=== PATIENT | female | born 1960 | race Hispanic/Latino ===

== ENCOUNTER 2018-02-15 13:57 | Inpatient (IN) | payer MEDICARE, OTHER ==
[2018-02-15 14:03] VITALS: BMI 37.8
--- NOTE | 2018-02-15 16:26 | C.PDOC ---
History Of Present Illness 57 y/o female brought in via ambulance, transferred to inpatient psychiatric floor. Patient was recently admitted inpatient at [facility] and decompensated. Prior to arrival, patient was accepted to Dr. Ellis's service. No physical complaints offered at this time. Time Seen by Provider: 02/15/18 14:02 Chief Complaint (Nursing): Medical Clearance History Per: Patient History/Exam Limitations: no limitations Past Medical History Reviewed: Historical Data, Nursing Documentation, Vital Signs Vital Signs: Last Vital Signs Temp 98.9 F 02/15/18 15:55 Pulse 96 H 02/15/18 15:55 Resp 18 02/15/18 15:55 BP 130/87 02/15/18 15:55 Pulse Ox 98 02/15/18 14:02 - Medical History PMH: Anemia, Anxiety, Asthma, Cardia Arrhythmia, COPD, Depression, Fractures (mild t 11 comp fx 2013), Gastritis, Gall Bladder Disease (CHOLECYSTITIS ,CHOLECYSTECTOMY,MILD GASTRITIS), GERD, Schizophrenia, Seizures (epilepsy) Denies: Bipolar Disorder, Diabetes, Hepatitis, HIV, Paranoia, Post Traumatic Stress Disorder, Chronic Kidney Disease, Sexually Transmitted Disease Comment Only: Arthritis (pt denies), HTN (pt denies), Hypercholesterolemia (pt denies) Surgical History: Appendectomy (removed with hyst), Cholecystectomy Denies: Pacemaker - [facility] Procedures APPLICATION OF SPLINT (08/05/06) BATHING/SHOWERING TECHNIQUES TREATMENT (01/18/18) CLOSED ENDOSCOPIC BIOPSY OF LARGE INTESTINE (07/04/14) COLONOSCOPY (12/06/13) ENDO EXCISION/DEST OF LESION OR TISSUE OF STOMACH (07/11/05) ENDOSC POLYPECTOMY OF LG INTEST (07/07/06) ESOPHAGOGASTRODUODENOSCOPY [EGD] W/CLOSED BIOPSY (07/04/14) GAIT TRAINING/AMBULAT TREATMENT USING ASSIST EQUIPMENT (01/18/18) GROOMING/PERSONAL HYGIENE TREATMENT (01/18/18) HOME MANAGEMENT TREATMENT (01/18/18) INJECT/INFUSE ELECTROLYT (08/28/14) INJECT/INFUSE NEC (08/28/14) MEDICATION MANAGEMENT (02/07/18) NEBULIZER THERAPY (10/17/14) PSYCHIA INTERV/EVAL NEC (11/06/13) THERAPEUTIC EXERCISE TREATMENT OF MUSCULOSK WHOLE (09/20/18) Family History: States: No Known Family Hx - Social History Hx Tobacco Use: No Hx Alcohol Use: No Hx Substance Use: No - Immunization History Hx Tetanus Toxoid Vaccination: No Hx Influenza Vaccination: No Hx Pneumococcal Vaccination: No Review Of Systems Constitutional: Negative for: Fever Cardiovascular: Negative for: Chest Pain Respiratory: Negative for: Shortness of Breath Gastrointestinal: Negative for: Vomiting Neurological: Negative for: Headache, Dizziness Physical Exam - Physical Exam Appears: Non-toxic, No Acute Distress, Other (Obese female) Skin: Warm, Dry Head: Atraumatic, Normacephalic Eye(s): bilateral: Normal Inspection Oral Mucosa: Moist Neck: Normal ROM Chest: Symmetrical Cardiovascular: Rhythm Regular, No Murmur Respiratory: Normal Breath Sounds, No Accessory Muscle Use Extremity: Bilateral: Atraumatic, Normal Color And Temperature Pulses: Left Radial: Normal, Right Radial: Normal Neurological/Psych: Oriented x3, Normal Speech, Other (Flat affect, bizarre) ED Course And Treatment O2 Sat by Pulse Oximetry: 98 (RA) Pulse Ox Interpretation: Normal Medical Decision Making Medical Decision Making: Patient already cleared for transfer to [facility] service. Admit orders placed. Disposition Discussed With : Mariela Ellis Doctor Will See Patient In The: Hospital Counseled Patient/Family Regarding: Diagnosis - Disposition Disposition: HOSPITALIZED Disposition Time: 14:03 Condition: STABLE - POA Present On Arrival: None - Clinical Impression Clinical Impression: Schizophrenia - Scribe Statement The provider has reviewed the documentation as recorded by the Scribe (Elaine Sim) Provider Attestation: All medical record entries made by the Scribe were at my direction and personally dictated by me. I have reviewed the chart and agree that the record accurately reflects my personal performance of the history, physical exam, medical decision making, and the department course for this patient. I have also personally directed, reviewed, and agree with the discharge instructions and disposition.
--- NOTE | 2018-02-15 17:48 | PCM.BM ---
<Rebekah Ovalles - Last Filed: 02/15/18 17:46> Treatment Plan Problems - Problems identified on initial assessmt depression Date Initiated: 02/15/18 Time Initiated: 17:47 Assessment reference: NA Status: Active Treatment assets and liabiliti Patient Assests: cooperative, educated, motivated, resourceful, ADL independent, negotiates basic needs, cognitively intact, good interpersonal skills, strong sofia Patient Liabilities: live alone, poor support system, medical problems <Diana Resendiz - Last Filed: 02/16/18 09:39> - Diagnosis (1) Schizoaffective disorder Status: Acute Interventions: 02/16/18 09:40 * Assess/adjust medications daily and /or as needed * See patient on an individual basis 7x/week to assess status of hallucinations * Discuss risks, benefits, side effects and alternatives of medications * <Ayaka Mars - Last Filed: 02/16/18 10:20> Family Contact Family involvement: Famliy/SO not involved - Goals for Treatment Patient goals for treatment: "I want the right medication." Discharge/Continuing Care - Education Needs Education Needs: Patient Medication, Patient Coping Skills - Discharge Discharge Criteria: Tolerates medication w/o severe side effects, Reduction of target symptoms Discharge to:: Home - Treatment Team Participation Discussed with Family/SO: No Was Patient/Family/SO present at Treatment Team Meeting: Yes
--- NOTE | 2018-02-16 09:37 | PCM.PSYCH ---
Initial Psychiatric Evaluation - Initial Psychiatric Evaluation Type of Admission: Voluntary Legal Status: Capacity Chief Complaint (in patient's own words): I was hearing voices. History of Present Illness and Precipitating Events: Patient is a 57 years old, single, unemployed CF, with a long history of schizophrenia, was transferred from [facility] because of disorganized behavior. Patient reports a long history of schizophrenia. She has been admitted multiple times in psychiatric hospitals. She reports history of follow-up with the outpatient clinic. As per the report, patient stopped taking her medications, became disorganized and was admitted to the hospital. Patient became increasingly paranoid and delusional that male staff is abusing her. Patient was transferred to [facility] further stabilization.. She remained disorganized and delusional but without the interview. She reports hearing voices, telling her to kill herself. She also reports of Visual hallucinations seeing shadows. She also reports paranoia that people are following her. she also reports paranoia that sometimes TV is talking to her. she remained paranoid throughout the interview. She reports at times depressed mood, feelings of hopelessness and helplessness, poor sleep and poor appetite. She denies any drinking or any drugs. PMH; DM, history of gout, history of seizures Current Medications: Active Medications Generic Name Dose Route Start Last Admin Trade Name Freq PRN Reason Stop Dose Admin Allopurinol 300 mg 02/16/18 10:00 Zyloprim PO DAILY ASHUTOSH Aspirin 81 mg 02/16/18 10:00 Aspirin Chewable PO DAILY ASHUTOSH Clozapine 25 mg 02/16/18 10:00 Clozaril PO BID ASHUTOSH Fluoxetine HCl 10 mg 02/16/18 10:00 Prozac PO DAILY ASHUTOSH Fluoxetine HCl 20 mg 02/16/18 10:00 Prozac PO DAILY ASHUTOSH Lamotrigine 100 mg 02/15/18 19:00 02/15/18 19:03 Lamictal PO 100 mg BID ASHUTOSH Administration Levetiracetam 1,000 mg 02/15/18 18:00 02/15/18 17:33 Keppra PO 1,000 mg BID ASHUTOSH Administration Lorazepam 1 mg 02/15/18 17:15 02/15/18 22:01 Ativan PO 1 mg Q6 PRN Administration Anxiety Past Psychiatric History - Past Psychiatric History Previous Treatment History: Inpatient Pertinent Medical Hx (Current Medical&Sleep Prob, Allergies): Allergies Allergy/AdvReac Type Severity Reaction Status Date / Time Penicillins Allergy Severe ITCHING Verified 02/15/18 14:03 Aspirin [Ecotrin] 81 mg PO DAILY #30 tabec 01/24/18 FLUoxetine [Prozac] 20 mg PO DAILY #30 cap 01/24/18 LORazepam [Ativan] 1 mg PO HS tab 01/24/18 LORazepam [Ativan] 2 mg PO Q6H PRN tab 01/24/18 Loratadine [Claritin] 10 mg PO DAILY #20 tab 01/24/18 levETIRAcetam [Keppra] 1,000 mg PO HS #30 tab 01/24/18 levETIRAcetam [Keppra] 750 mg PO DAILY #30 tab 01/24/18 Allopurinol [Zyloprim] 300 mg PO DAILY 02/07/18 Mirtazapine [Remeron] 15 mg PO HS 02/07/18 Omeprazole 40 mg PO DAILY 02/07/18 lamoTRIgine [LaMICtal] 100 mg PO BID 02/07/18 Review of Systems - Review of Systems All systems: reviewed and no additional remarkable complaints except - Psychiatric Psychiatric: Anxiety, Auditory Hallucinations, Irritability, Paranoia Mental Status Examination - Personal Presentation Personal Presentation: Looks stated age - Affect Affect: Constricted, Depressed - Motor Activity Motor Activity: Psychomotor Retardation - Reliability in Providing Information Reliability in Providing Information: Poor, due to alteration in thoughts, Poor, due to altered mood - Speech Speech: Disorganized - Mood Mood: Depressed, Anxious - Formal Thought Process Formal Thought Process: Hallucinations, Delusions, Paranoia, Loosening of associations - Hallucinations/Delusions Hallucinations: Visual, Auditory Delusions: Persecution - Obsessions/Compulsions Obsessions: No Compulsions: No - Cognitive Functions Orientation: Person, Place, Situation, Time Sensorium: Alert Attention/Concentration: Attentive Abstract Thinking: [place] Estimate of Intelligence: Below average Judgement: Imparied, as evidence by: Poor judgement, Imparied, as evidence by: Lack of insight into illness - Risk Risk: Diminished functioning - Limitations Limitations: Living alone DSM 5 DX - DSM 5 DSM 5 Diagnosis: schizophrenia paranoid type continuous Rule out schizoaffective disorder bipolar type - Recommended/Plan of Treatment Treatment Recommendations and Plan of Treatment: Schizophrenia paranoid type continuous Rule out Schizoaffective disorder bipolar type DM, history of gout, history of seizures CBT Psychoeducation Supportive therapy continue clozapine Continue Keppra Start Remeron Start allopurinol Continue Lamictal Continue aspirin Continue Prozac - Smoking Cessation Smoking Cessation Initiated: No
[2018-02-16] MEDS: Pantoprazole 40 mg EC Tab PO SCH (10:17)
[2018-02-16 13:59] LABS: BASO % 0.6 % (0.0-2.0); EOS # 0.1 K/uL (0.0-0.7); EOS % 1.5 % (0.0-4.0); LYMPH # 1.1 K/uL (1.0-4.3); LYMPH % 19.7 % (20.0-40.0); MEAN CORPUSCULAR HEMOGLOBIN 29.3 pg (27.0-31.0); MEAN CORPUSCULAR HGB CONC 33.8 g/dL (33.0-37.0); MEAN PLATELET VOLUME 7.1 fL (7.2-11.7); MONO # 0.3 K/uL (0.0-0.8); MONO % 4.6 % (0.0-10.0); NEUT # 4.2 K/uL (1.8-7.0); NEUT % 73.6 % (50.0-75.0); RBC 4.06 Mil/uL (3.80-5.20); RED CELL DISTRIBUTION WIDTH 14.3 % (11.5-14.5); WHITE BLOOD COUNT 5.8 K/uL (4.8-10.8)
[2018-02-16 14:01] LABS: HEMOGLOBIN 11.9 g/dL (11.0-16.0); MEAN CELL VOLUME 86.6 fL (81.0-99.0)
[2018-02-17] MEDS: Pantoprazole 40 mg EC Tab PO SCH (09:11)
--- NOTE | 2018-02-17 16:44 | PCM.PYCHPN ---
Psychiatric Progress Note - Psychiatric Progress Note Patient seen today, length of contact: 15 minutes Patient Chief Complaint: I'm still hearing voices, telling me to kill myself. I feel better when he take medications. Problems Identified/Issues Discussed: Patient seen, chart reviewed, case discussed with the staff. Issues related to illness and treatment were discussed with the patient and staff. Tolerating treatment very well. Reported compliant with treatment with no adverse affects. Patient reported feeling little better with treatment. Still reported hearing voices telling her to kill herself. Needs more time for stabilization. Patient was also very pleasant during evaluation. Also reported decreased sleep. Patient was calm and cooperative. Awake, alert and oriented 3. Aftercare discussed with the patient. At the time of evaluation, patient had no delusions, no auditory or visual hallucinations, no suicidal ideations or homicidal ideations. Medical Problems: Diabetes mellitus Asthma Seizure/pseudoseizure Postural hypotension Diagnostic Results: Reviewed Medication Change: No Medical Record Reviewed: Yes Mental Status Examination - Cognitive Function Orientation: Person, Place, Situation, Time Memory: Intact Attention: WNL Concentration: WNL Association: WN Fund of Knowledge: [facility] Decription of patient's judgement and insights: Fair - Mood Mood: Depressed - Affect Affect: Depressed - Speech Speech: Appropriate - Formal Thought Process Formal Thought Process: Hallucinations (Especially at night) Goal/Treatment Plan - Goal/Treatment Plan Need for Continued Stay: Remain at risks for inpatient hospitalization, Discharge may exacerbated symptoms, Severe functional impairment Progress Toward Problem(s) and Goals/Treatment Plan: Patient/staff education. Supportive therapy. Continue treatment as before. Estimated Date of D/C: 02/22/18 - Smoking Cessation Smoking Cessation Initiated: No
[2018-02-18] MEDS: Pantoprazole 40 mg EC Tab PO SCH (09:32)
--- NOTE | 2018-02-18 17:57 | PCM.PYCHPN ---
Psychiatric Progress Note - Psychiatric Progress Note Patient seen today, length of contact: 15 minutes Patient Chief Complaint: I'm still hearing voices, telling me to kill myself. I feel better when i take medications. Problems Identified/Issues Discussed: Patient seen, chart reviewed, case discussed with the staff. Issues related to illness and treatment were discussed with the patient and staff. Tolerating treatment very well. Reported compliant with treatment with no adverse affects. Patient reported feeling little better with treatment. Still reported hearing voices telling her to kill herself. Patient was asking for more medications including high dose of Remeron. Education provided to the patient about medications. Looks like patient has med seeking behavior. Needs more time for stabilization. Again reported decreased sleep. Patient was calm and cooperative. Awake, alert and oriented 3. Aftercare discussed with the patient. At the time of evaluation, patient had no delusions, no auditory or visual hallucinations, no suicidal ideations or homicidal ideations. Medical Problems: Diabetes mellitus Asthma Seizure/pseudoseizure Postural hypotension Diagnostic Results: Reviewed DSM 5 Symptoms Update: Some improvement with treatment Medication Change: No Medical Record Reviewed: Yes Mental Status Examination - Cognitive Function Orientation: Person, Place, Situation, Time Memory: Intact Attention: WNL Concentration: WNL Association: WN Fund of Knowledge: [facility] Decription of patient's judgement and insights: Fair - Mood Mood: Depressed - Affect Affect: Depressed - Speech Speech: Appropriate - Formal Thought Process Formal Thought Process: Hallucinations - Suicidal Ideation Suicidal Ideation: No - Homicidal Ideation Homicidal Ideation: No Goal/Treatment Plan - Goal/Treatment Plan Need for Continued Stay: Remain at risks for inpatient hospitalization, Discharge may exacerbated symptoms, Severe functional impairment Progress Toward Problem(s) and Goals/Treatment Plan: Patient/staff education. Supportive therapy. Continue treatment as before. Estimated Date of D/C: 02/22/18 - Smoking Cessation Smoking Cessation Initiated: No
[2018-02-19] MEDS: Pantoprazole 40 mg EC Tab PO SCH (09:52)
--- NOTE | 2018-02-19 11:36 | PCM.PYCHPN ---
Psychiatric Progress Note - Psychiatric Progress Note Patient seen today, length of contact: 15 minutes Patient Chief Complaint: hearing voices Problems Identified/Issues Discussed: Patient seen and evaluated, chart reviewed and discussed with the nurse. Patient remained disorganized and internally preoccupied. Patient remained isolated, confined and withdrawn. She still reports of hearing voices. Patient still appears paranoid and delusional. She reports some improvement in her mood. But remained isolated and withdrawn. She is taking medication and denies any side effects. Symptoms are improving but needs more time for stabilization. Supportive therapy and psychoeducation were given. Medication Change: No Medical Record Reviewed: Yes Mental Status Examination - Cognitive Function Orientation: Person, Place, Situation, Time Memory: Intact Attention: WNL Concentration: Poor Association: Loose Fund of Knowledge: Poor - Mood Mood: Depressed - Affect Affect: Depressed - Speech Speech: Appropriate - Formal Thought Process Formal Thought Process: Hallucinations, Delusions, Paranoia, Loosening of associations - Suicidal Ideation Suicidal Ideation: No - Homicidal Ideation Homicidal Ideation: No Goal/Treatment Plan - Goal/Treatment Plan Need for Continued Stay: Remain at risks for inpatient hospitalization, Discharge may exacerbated symptoms, Severe functional impairment Progress Toward Problem(s) and Goals/Treatment Plan: Schizophrenia paranoid type continuous Rule out Schizoaffective disorder bipolar type DM, history of gout, history of seizures CBT Psychoeducation Supportive therapy continue clozapine Continue Keppra Start Remeron Start allopurinol Continue Lamictal Continue aspirin Continue Prozac Estimated Date of D/C: 02/22/18
[2018-02-20 08:41] LABS: BASO % 0.5 % (0.0-2.0); EOS # 0.1 K/uL (0.0-0.7); EOS % 1.7 % (0.0-4.0); HEMOGLOBIN 11.7 g/dL (11.0-16.0); LYMPH # 1.2 K/uL (1.0-4.3); LYMPH % 24.8 % (20.0-40.0); MEAN CELL VOLUME 86.7 fL (81.0-99.0); MEAN CORPUSCULAR HEMOGLOBIN 29.7 pg (27.0-31.0); MEAN CORPUSCULAR HGB CONC 34.3 g/dL (33.0-37.0); MEAN PLATELET VOLUME 7.5 fL (7.2-11.7); MONO # 0.3 K/uL (0.0-0.8); MONO % 5.6 % (0.0-10.0); NEUT # 3.3 K/uL (1.8-7.0); NEUT % 67.4 % (50.0-75.0); NRBC % 0.1 % (0.0-2.0); RBC 3.92 Mil/uL (3.80-5.20); RED CELL DISTRIBUTION WIDTH 14.1 % (11.5-14.5); WHITE BLOOD COUNT 4.9 K/uL (4.8-10.8)
[2018-02-20] MEDS: Pantoprazole 40 mg EC Tab PO SCH (09:49)
[2018-02-21] MEDS: Pantoprazole 40 mg EC Tab PO SCH (10:21)
--- NOTE | 2018-02-21 11:16 | PCM.PYCHPN ---
Psychiatric Progress Note - Psychiatric Progress Note Patient seen today, length of contact: 15 minutes Patient Chief Complaint: hearing voices Problems Identified/Issues Discussed: Patient seen and evaluated, chart reviewed and discussed with the nurse. Patient appears more organized and less internally preoccupied but she still reports of hearing voices. Patient still appears paranoid and delusional. Patient remained isolated, confined and withdrawn. She reports some improvement in her mood. She is taking medication and denies any side effects. Symptoms are improving but needs more time for stabilization. Supportive therapy and psychoeducation were given. Medication Change: No Medical Record Reviewed: Yes Mental Status Examination - Cognitive Function Orientation: Person, Place, Situation, Time Memory: Intact Attention: WNL Concentration: Poor Association: Loose Fund of Knowledge: Poor - Mood Mood: Depressed - Affect Affect: Depressed - Speech Speech: Appropriate - Formal Thought Process Formal Thought Process: Hallucinations, Paranoia, Loosening of associations - Suicidal Ideation Suicidal Ideation: No - Homicidal Ideation Homicidal Ideation: No Goal/Treatment Plan - Goal/Treatment Plan Need for Continued Stay: Remain at risks for inpatient hospitalization, Discharge may exacerbated symptoms, Severe functional impairment Progress Toward Problem(s) and Goals/Treatment Plan: Schizophrenia paranoid type continuous Rule out Schizoaffective disorder bipolar type DM, history of gout, history of seizures CBT Psychoeducation Supportive therapy Increase clozapine Keppra Remeron Conitnue allopurinol Continue Lamictal Continue aspirin Prozac Estimated Date of D/C: 02/26/18 - Smoking Cessation Smoking Cessation Initiated: No
[2018-02-22] MEDS: Pantoprazole 40 mg EC Tab PO SCH (09:43)
--- NOTE | 2018-02-23 06:22 | PCM.PYCHPN ---
Psychiatric Progress Note - Psychiatric Progress Note Patient seen today, length of contact: 15 minutes Patient Chief Complaint: I am still hearing voices Problems Identified/Issues Discussed: Patient seen and evaluated, chart reviewed and discussed with the nurse. She reports some improvement in her mood. Patient appears more organized and less internally preoccupied but she still reports of hearing voices. Patient still appears paranoid and delusional. Patient remained isolated, confined and withdrawn. She is taking medication and denies any side effects. Symptoms are improving but needs more time for stabilization. Supportive therapy and psychoeducation were given. Medication Change: Yes (increase clozaril) Medical Record Reviewed: Yes Mental Status Examination - Cognitive Function Orientation: Person, Place, Situation, Time Memory: Intact Attention: WNL Concentration: WNL Association: Loose Fund of Knowledge: WNL - Mood Mood: Depressed - Affect Affect: Depressed - Speech Speech: Appropriate - Formal Thought Process Formal Thought Process: Hallucinations, Delusions, Paranoia, Loosening of associations - Suicidal Ideation Suicidal Ideation: No - Homicidal Ideation Homicidal Ideation: No Goal/Treatment Plan - Goal/Treatment Plan Need for Continued Stay: Remain at risks for inpatient hospitalization, Dis charge may exacerbated symptoms, Severe functional impairment Progress Toward Problem(s) and Goals/Treatment Plan: Schizophrenia paranoid type continuous Rule out Schizoaffective disorder bipolar type DM, history of gout, history of seizures CBT Psychoeducation Supportive therapy Increase Clozapine to 200 mg PO BID Keppra 1000 BID Remeron to 30 mg PO QHS Continue allopurinol Lamictal 100 mg PO BID Continue aspirin Estimated Date of D/C: 02/22/18
[2018-02-23] MEDS: Pantoprazole 40 mg EC Tab PO SCH (09:23)
--- NOTE | 2018-02-23 09:41 | PCM.BM ---
<Ayaka Mars - Last Filed: 02/23/18 09:40> Treatment Plan Problems - Problems identified on initial assessmt depression Date Initiated: 02/15/18 Time Initiated: 17:47 Assessment reference: NA Status: Active Treatment assets and liabiliti Patient Assests: cooperative, educated, motivated, resourceful, ADL independent, negotiates basic needs, cognitively intact, good interpersonal skills, strong sofia Patient Liabilities: live alone, poor support system, medical problems - Milieu Protocol Milieu Narrative: Schizophrenia paranoid type continuous Rule out Schizoaffective disorder bipolar type DM, history of gout, history of seizures CBT Psychoeducation Supportive therapy continue clozapine Continue Keppra Start Remeron Start allopurinol Continue Lamictal Continue aspirin Continue Prozac Family Contact Family involvement: Famliy/SO not involved - Goals for Treatment Patient goals for treatment: "I want the right medication." Discharge/Continuing Care - Education Needs Education Needs: Patient Medication, Patient Coping Skills - Discharge Discharge Criteria: Tolerates medication w/o severe side effects, Reduction of target symptoms Discharge to:: Home - Treatment Team Participation Patient/Family/SO Statement: Schizophrenia paranoid type continuous Rule out Schizoaffective disorder bipolar type DM, history of gout, history of seizures CBT Psychoeducation Supportive therapy continue clozapine Continue Keppra Start Remeron Start allopurinol Continue Lamictal Continue aspirin Continue Prozac Discussed with Family/SO: No Was Patient/Family/SO present at Treatment Team Meeting: Yes Treatment Plan Review - Problem depression Time Initiated: 17:47 - Discharge / Continuing Care Discharge to:: Home Behavioral Health Services: Outpatient therapy Health Needs: Medications/Rx <Diana Resendiz - Last Filed: 02/23/18 10:58> - Diagnosis (1) Schizoaffective disorder Status: Acute Interventions: 02/23/18 11:01 * Assess/adjust medications daily and /or as needed * See patient on an individual basis 7x/week to assess status of hallucinations * Discuss risks, benefits, side effects and alternatives of medications * <Jacqui Fleming - Last Filed: 02/23/18 13:17> Treatment Plan Problems - Problems identified on initial assessmt depression Assessment reference: NA Status: Active - Milieu Protocol Maintain good personal hygiene: daily Encourage regular showers, daily Remind patient to perform daily oral care, daily Assist patient to perform ADL's Maintain personal safety: every shift Educate patient to report safety concerns to staff, every shift Monitor environment for contraband/sharps Medication safety: Monitor for expected outcome, potential side effects: every shift, Assess barriers to learning: every shift, Assess readiness for medication education: every shift
--- NOTE | 2018-02-23 11:03 | PCM.PYCHPN ---
Psychiatric Progress Note - Psychiatric Progress Note Patient seen today, length of contact: 15 minutes Patient Chief Complaint: My voices are getting little better.' Problems Identified/Issues Discussed: Patient seen and evaluated, chart reviewed and discussed with the nurse. She reports some improvement in her mood. Patient appears more organized and less internally preoccupied but she still reports of hearing voices. Patient still appears paranoid and delusional. Patient remained isolated, confined and withdrawn. She is taking medication and denies any side effects. Symptoms are improving but needs more time for stabilization. Supportive therapy and psychoeducation were given. Medication Change: Yes (increase Clozapine) Medical Record Reviewed: Yes Mental Status Examination - Cognitive Function Orientation: Person, Place, Situation, Time Memory: Intact Attention: WNL Concentration: WNL Association: Loose Fund of Knowledge: WNL - Mood Mood: Depressed, Anxious - Affect Affect: Constricted, Depressed - Speech Speech: Appropriate - Formal Thought Process Formal Thought Process: Hallucinations, Paranoia - Suicidal Ideation Suicidal Ideation: No - Homicidal Ideation Homicidal Ideation: No Goal/Treatment Plan - Goal/Treatment Plan Need for Continued Stay: Remain at risks for inpatient hospitalization, Discharge may exacerbated symptoms, Severe functional impairment Progress Toward Problem(s) and Goals/Treatment Plan: Schizophrenia paranoid type continuous Rule out Schizoaffective disorder bipolar type DM, history of gout, history of seizures CBT Psychoeducation Supportive therapy Increase Clozapine to 200 mg PO BID Keppra 1000 BID Remeron to 30 mg PO QHS Continue allopurinol Lamictal 100 mg PO BID Continue aspirin Estimated Date of D/C: 02/22/18
[2018-02-24] MEDS ORDERED: Magnesium Hydroxide Susp 30 ml UD PO ONE (00:15)
[2018-02-24] MEDS: Pantoprazole 40 mg EC Tab PO SCH (09:22)
[2018-02-24] MEDS ORDERED: Bisacodyl 5mg EC Tab PO ONE (11:58)
--- NOTE | 2018-02-24 23:00 | PCM.PYCHPN ---
Psychiatric Progress Note - Psychiatric Progress Note Patient seen today, length of contact: 15 minutes Patient Chief Complaint: "I am too anxious" Problems Identified/Issues Discussed: The pt is seen, chart reviewed, case discussed with staff. The pt is compliant with medications and reports no side-effects. Symptoms are improving but needs more time to stabilize. After care discussed, support and psychoeducation given. Medication Change: Yes (dulcolax) Medical Record Reviewed: Yes Mental Status Examination - Cognitive Function Orientation: Person, Place, Situation, Time Memory: Intact Attention: WNL Concentration: WNL Association: Loose Fund of Knowledge: WNL - Mood Mood: Depressed, Anxious - Affect Affect: Constricted, Depressed - Speech Speech: Appropriate - Formal Thought Process Formal Thought Process: Paranoia - Suicidal Ideation Suicidal Ideation: No - Homicidal Ideation Homicidal Ideation: No Goal/Treatment Plan - Goal/Treatment Plan Need for Continued Stay: Remain at risks for inpatient hospitalization, Discharge may exacerbated symptoms, Severe functional impairment Progress Toward Problem(s) and Goals/Treatment Plan: Continue medications Support and psychoeducation daily Attend groups and activities daily After care planning by JUDITH Estimated Date of D/C: 02/27/18 If changed, why: Not stabilized
[2018-02-25 06:55] VITALS: RESP 20
[2018-02-25] MEDS: Pantoprazole 40 mg EC Tab PO SCH (09:30)
--- NOTE | 2018-02-25 20:31 | PCM.PYCHPN ---
Psychiatric Progress Note - Psychiatric Progress Note Patient seen today, length of contact: 15 minutes Patient Chief Complaint: "I am better" Problems Identified/Issues Discussed: The pt is seen, chart reviewed, case discussed with staff. Support given, No new symptoms reported, improving slowly and needs more time Less psychotic Somatically preoccupied No SEs from medications, risks discussed. After care discussed Medication Change: No Medical Record Reviewed: Yes Mental Status Examination - Cognitive Function Orientation: Person, Place, Situation, Time Memory: Intact Attention: WNL Concentration: WNL Association: Loose Fund of Knowledge: WNL - Mood Mood: Depressed, Anxious - Affect Affect: Constricted, Depressed - Speech Speech: Appropriate - Formal Thought Process Formal Thought Process: Paranoia - Suicidal Ideation Suicidal Ideation: No - Homicidal Ideation Homicidal Ideation: No Goal/Treatment Plan - Goal/Treatment Plan Need for Continued Stay: Remain at risks for inpatient hospitalization, Discharge may exacerbated symptoms, Severe functional impairment Progress Toward Problem(s) and Goals/Treatment Plan: Continue medications Support and psychoeducation daily Attend groups and activities daily After care planning by JUDITH Estimated Date of D/C: 02/27/18
[2018-02-26 07:21] LABS: BASO % 0.6 % (0.0-2.0); EOS # 0.1 K/uL (0.0-0.7); EOS % 1.5 % (0.0-4.0); HEMOGLOBIN 11.8 g/dL (11.0-16.0); LYMPH # 1.4 K/uL (1.0-4.3); LYMPH % 23.6 % (20.0-40.0); MEAN CELL VOLUME 88.6 fL (81.0-99.0); MEAN CORPUSCULAR HEMOGLOBIN 30.2 pg (27.0-31.0); MEAN CORPUSCULAR HGB CONC 34.1 g/dL (33.0-37.0); MEAN PLATELET VOLUME 6.9 fL (7.2-11.7); MONO # 0.3 K/uL (0.0-0.8); MONO % 4.7 % (0.0-10.0); NEUT % 69.6 % (50.0-75.0); RBC 3.89 Mil/uL (3.80-5.20); RED CELL DISTRIBUTION WIDTH 14.6 % (11.5-14.5); WHITE BLOOD COUNT 5.7 K/uL (4.8-10.8)
[2018-02-26 08:51] VITALS: TEMP 97.4; O2SAT 95
--- NOTE | 2018-02-26 10:22 | PCM.PYCHPN ---
Psychiatric Progress Note - Psychiatric Progress Note Patient seen today, length of contact: 15 minutes Patient Chief Complaint: My voices are getting little better.' Problems Identified/Issues Discussed: Patient seen and evaluated, chart reviewed and discussed with the nurse. She reports some improvement in her mood. Patient appears more organized and less internally preoccupied but she still reports of hearing voices. Patient still appears paranoid and delusional. Patient remained isolated, confined and withdrawn. She is taking medication and denies any side effects. Symptoms are improving but needs more time for stabilization. Supportive therapy and psychoeducation were given. Medication Change: Yes (dulcolax) Medical Record Reviewed: Yes Mental Status Examination - Cognitive Function Orientation: Person, Place, Situation, Time Memory: Intact Attention: WNL Concentration: WNL Association: Loose Fund of Knowledge: WNL - Mood Mood: Depressed, Anxious - Affect Affect: Constricted, Depressed - Speech Speech: Appropriate - Formal Thought Process Formal Thought Process: Paranoia - Suicidal Ideation Suicidal Ideation: No - Homicidal Ideation Homicidal Ideation: No Goal/Treatment Plan - Goal/Treatment Plan Need for Continued Stay: Remain at risks for inpatient hospitalization, Dis charge may exacerbated symptoms, Severe functional impairment Progress Toward Problem(s) and Goals/Treatment Plan: Schizophrenia paranoid type continuous Rule out Schizoaffective disorder bipolar type DM, history of gout, history of seizures CBT Psychoeducation Supportive therapy Increase Clozapine to 200 mg PO BID Keppra 1000 BID Remeron to 30 mg PO QHS Continue allopurinol Lamictal 100 mg PO BID Continue aspirin Estimated Date of D/C: 02/27/18
[2018-02-26] MEDS: Pantoprazole 40 mg EC Tab PO SCH (10:48)
[2018-02-26 16:06] VITALS: BP 139/81; PULSE 99
[2018-02-27] MEDS: Pantoprazole 40 mg EC Tab PO SCH (09:05)
--- NOTE | 2018-02-27 09:42 | PCM.PYCHDC ---
Mental Status Examination - Mental Status Examination Orientation: Person, Place, Situation, Time Memory: Intact Mood: Neutral Affect: Constricted Speech: Soft Attention: WNL Concentration: WNL Association: WNL Fund of Knowledge: WNL Formal Thought Process: No Impairment Description of patient's judgement and insight: good, fair Psychotic Thoughts and Behaviors: denies any AVH Suicidal Ideation: No Current Homicidal Ideation?: No Discharge Summary - Discharge Note Reason for Hospitalization: Patient is a 57 years old, single, unemployed CF, with a long history of schizophrenia, was transferred from [facility] because of disorganized behavior. Patient reports a long history of schizophrenia. She has been admitted multiple times in psychiatric hospitals. She reports history of follow-up with the outpatient clinic. As per the report, patient stopped taking her medications, became disorganized and was admitted to the hospital. Patient became increasingly paranoid and delusional that male staff is abusing her. Patient was transferred to [facility] further stabilization.. She remained disorganized and delusional but without the interview. She reports hearing voices, telling her to kill herself. She also reports of Visual hallucinations seeing shadows. She also reports paranoia that people are following her. she also reports paranoia that sometimes TV is talking to her. she remained paranoid throughout the interview. She reports at times depressed mood, feelings of hopelessness and helplessness, poor sleep and poor appetite. She denies any drinking or any drugs. PMH; DM, history of gout, history of seizures Consultations:: List each consultation separately and include: 1. Reason for request. 2. Findings. 3. Follow-up Summary of Hospital Course include:: 1. Description of specific treatment plan utilized for patients during their course of treatmen. 2. Summarize the time- course for resolution of acute symptoms and/or regressed behaviors. 3. Describe issues identified and worked on during hospitalization. 4. Describe medication utilized. 5. Describe medical problems identified and treated. 6. Reassessment of suicide risk Summary of Hospital Course: Patient is a 57 years old, single, unemployed CF, with a long history of schizophrenia, was transferred from [facility] because of disorganized behavior. Patient reports a long history of schizophrenia. She has been admitted multiple times in psychiatric hospitals. She reports history of follow-up with the outpatient clinic. As per the report, patient stopped taking her medications, became disorganized and was admitted to the hospital. Patient became increasingly paranoid and delusional that male staff is abusing her. Patient was transferred to [facility] further stabilization.. She remained disorganized and delusional but without the interview. She reports hearing voices, telling her to kill herself. She also reports of Visual hallucinations seeing shadows. She also reports paranoia that people are following her. she also reports paranoia that sometimes TV is talking to her. she remained paranoid throughout the interview. She reports at times depressed mood, feelings of hopelessness and helplessness, poor sleep and poor appetite. She denies any drinking or any drugs. PMH; DM, history of gout, history of seizures - Diagnosis (1) Schizoaffective disorder Current Visit: Yes Status: Acute - Final Diagnosis (DSM 5) Condition upon Discharge: STABLE Disposition: HOME/ ROUTINE Follow-up Treatment Plan: Schizophrenia paranoid type continuous Rule out Schizoaffective disorder bipolar type DM, history of gout, history of seizures CBT Psychoeducation Supportive therapy Increase Clozapine to 200 mg PO BID Keppra 1000 BID Remeron to 30 mg PO QHS Continue allopurinol Lamictal 100 mg PO BID Continue aspirin Prescriptions/Medication Reconciliation: Allopurinol [Zyloprim] 300 mg PO DAILY #30 tab Aspirin [Aspirin Chewable] 81 mg PO DAILY #30 chew cloZAPine [Clozaril] 200 mg PO BID #60 tab lamoTRIgine [Lamictal] 100 mg PO BID #60 tab levETIRAcetam [Keppra] 1,000 mg PO BID #30 tab Loratadine [Claritin] 10 mg PO DAILY #30 tab Mirtazapine [Remeron] 45 mg PO HS #30 tab
== END 2018-02-27 12:57 | disposition home or self-care (01) | DRG 885 ==
LOC: C.ER 13:57 → C.5E 14:03
PROVIDERS: ADMIT Psychiatry & Neurology Psychiatry; ATTEND Psychiatry & Neurology Psychiatry
PROC: GZ3ZZZZ Medication Management (ICD-10-PCS; principal; 2018-02-15)
PROC: GZHZZZZ Group Psychotherapy (ICD-10-PCS; 2018-02-15)
PROC: GZ56ZZZ Individual Psychotherapy, Supportive (ICD-10-PCS; 2018-02-15)
DX: F20.0 Paranoid schizophrenia (principal); F25.0 Schizoaffective disorder, bipolar type; E11.9 Type 2 diabetes mellitus without complications; F44.5 Conversion disorder with seizures or convulsions; I95.1 Orthostatic hypotension; J44.9 Chronic obstructive pulmonary disease, unspecified; K21.9 Gastro-esophageal reflux disease without esophagitis; Z90.49 Acquired absence of other specified parts of digestive tract; Z91.14 Patient's other noncompliance with medication regimen